=== PATIENT | female | born 1970 | race Caucasian/White ===

== ENCOUNTER → 2017-03-15 | Outpatient (CLI) | payer BC ==
--- NOTE | 2017-03-15 08:04 | USB ---
Reason for exam: follow-up at short interval from prior study. History: Patient is nulliparous. Family history of breast cancer in maternal aunt at age 70. Benign US biopsy breast VAD LT of the left breast, September 14, 2016. Benign US biopsy breast add'l VAD LT of the left breast, September 14, 2016. Cancelled Left US Needle Biopsy of the left breast, November 19, 2007. Took hormonal contraceptives for 15 years. Physical Findings: Nurse Summary: Left breast palpable at 1 o'clock, 1 x 1.5cm movable, non-tender palpable lump (nurse ts). US Breast LT Left breast ultrasound includes all four quadrants, the retroareolar region and axilla. Finding demonstrate a 1.6 x 0.8 x 1.2cm oval, solid, hypoechoic lesion at 1 o'clock and a 1.0 x 0.6 x 0.9cm oval, solid, hypoechoic lesion at 3 o'clock that have been previously biopsied. These results were verbally communicated with the patient and result sheet given to the patient on 03/15/17. ASSESSMENT: Benign, BI-RAD 2 RECOMMENDATION: Routine screening mammogram of both breasts in 2 months. Back on schedule May 2017.
== END | disposition home or self-care (01) ==
LOC: RADUSWWP 06:50
PROVIDERS: ATTEND Surgery
DX: R92.8 Other abnormal and inconclusive findings on diagnostic imaging of breast (principal)

== ENCOUNTER → 2017-05-30 | Outpatient (CLI) | payer BC ==
--- NOTE | 2017-06-01 09:42 | MM ---
Reason for exam: screening (asymptomatic). Last mammogram was performed 1 year ago. History: Patient is nulliparous. Family history of breast cancer in maternal aunt at age 70. Benign US biopsy breast VAD LT of the left breast, September 14, 2016. Benign US biopsy breast add'l VAD LT of the left breast, September 14, 2016. Cancelled Left US Needle Biopsy of the left breast, November 19, 2007. Took hormonal contraceptives for 15 years. Physical Findings: A clinical breast exam by your physician is recommended on an annual basis and results should be correlated with mammographic findings. MG 3D Screening Mammo W/Cad Bilateral CC and MLO view(s) were taken. Prior study comparison: January 28, 2014, bilateral digital screening mammo w/CAD. November 06, 2012, bilateral digital screening mammo w/CAD. The breast tissue is heterogeneously dense. This may lower the sensitivity of mammography. No significant changes when compared with prior studies. ASSESSMENT: Benign, BI-RAD 2 RECOMMENDATION: Routine screening mammogram of both breasts in 1 year.
== END | disposition home or self-care (01) ==
LOC: RADMAMWWP 06:53
PROVIDERS: ATTEND Surgery
DX: Z12.31 Encounter for screening mammogram for malignant neoplasm of breast (principal)
CPT/HCPCS: 77063; G0202

== ENCOUNTER → 2017-05-31 | Outpatient (CLI) | payer BC ==
--- NOTE | 2017-06-01 09:13 | WWHP ---
CHIEF COMPLAINT: The patient is here for her routine gynecologic exam and mammogram. HPI: This is a 46-year-old G0 with a LMP of 05/19/17. The patient states she felt a very small lump in the left labia recently. It was smaller than pea size. She squeezed it a small amount of fluid came out. She is otherwise without complaints. Her is status post vasectomy. Menses are regular. PAST MEDICAL HISTORY: Hypothyroidism and chronic hypertension. MEDICATIONS: Levoxyl 112 mcg daily, triamterene /hydrochlorothiazide capsules 37.5/25 daily, aspirin 81 mg daily, atenolol 25 mg daily, Slow-Mag 1 daily, vitamin D chewable 2 daily. ALLERGIES: PENICILLIN. PAST SURGICAL HISTORY: Tonsillectomy with adenoidectomy at age 24, left breast biopsy in 09/23. Colonoscopy in 11/25. PAST CASTING FINISHER HISTORY: She has no history of STDs. SOCIAL HISTORY: She denies tobacco and drug use and has about four alcoholic drinks per month. She has been since 2011 and this is her second marriage. 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 FAMILY HISTORY: Father and maternal grandfather have diabetes. REVIEW OF SYSTEMS: She has gained about 8 pounds over the last year. She denies respiratory, cardiac, or GI problems. PHYSICAL EXAM: Blood pressure 129/87, height 5 feet 7 inches, weight 205 pounds. Temperature 98.2, pulse 67. This is a well developed, well nourished white female who is alert and oriented x3 in no acute distress. HEENT is within normal limits. Neck is supple without mass or thyromegaly. Chest and lungs clear to auscultation. Heart: Regular rate and rhythm. Breasts are without mass or discharge. Axillary exam is negative for adenopathy. Back negative for CVA tenderness. Abdomen is soft, nontender without palpable masses. Pelvic exam: Normal external genitalia. No lesions are noted. Cervix and vagina appear normal. There is no evidence of prolapse. The uterus is mid-position, nongravid size and nontender. There are no palpable adnexal masses or tenderness. Rectal exam is negative for mass or tenderness and is negative for occult blood. Extremities are nontender. IMPRESSION: 1. A 46-year-old gynecologically healthy female with normal gynecologic exam. 2. The patient expressed a small amount of fluid from small lump that she noticed in the left labia and there are no significant physical findings at this time. This probably was a small dermal inclusion cyst. PLAN: 1. PAP smear was performed per the patients request despite my recommendation to defer the PAP smear since she had a normal one last year. She feels strongly that she would like to have this done yearly for personal reasons. The PAP smear was performed. 2. Self breast examination was discussed. 3. Mammogram was done yesterday with results pending. 4. Osteoporosis prevention was discussed. 5. She will return in one year. SIMIN
== END | disposition home or self-care (01) ==
LOC: WWCWWP 07:43
PROVIDERS: ATTEND Obstetrics & Gynecology
DX: Z01.419 Encounter for gynecological examination (general) (routine) without abnormal findings (principal)

== ENCOUNTER → 2018-07-04 | Outpatient (CLI) | payer BC ==
--- NOTE | 2018-07-05 10:04 | MM ---
Reason for exam: screening (asymptomatic). Last mammogram was performed 1 year and 1 month ago. History: Patient is nulliparous. Family history of breast cancer in maternal aunt at age 70. Benign US biopsy breast VAD LT of the left breast, September 14, 2016. Benign US biopsy breast add'l VAD LT of the left breast, September 14, 2016. Cancelled Left US Needle Biopsy of the left breast, November 19, 2007. Took hormonal contraceptives for 15 years. Physical Findings: A clinical breast exam by your physician is recommended on an annual basis and results should be correlated with mammographic findings. MG 3D Screening Mammo W/Cad Bilateral CC and MLO view(s) were taken. Prior study comparison: May 30, 2017, bilateral MG 3d screening mammo w/cad. May 17, 2016, bilateral MG screening mammo w CAD. The breast tissue is heterogeneously dense. This may lower the sensitivity of mammography. Previous mammotome biopsy in the left breast x 2. There is chronic nodularity in the left breast. No significant changes when compared with prior studies. ASSESSMENT: Benign, BI-RAD 2 RECOMMENDATION: Routine screening mammogram of both breasts in 1 year.
== END | disposition home or self-care (01) ==
LOC: RADMAMWWP 06:58
PROVIDERS: ATTEND Internal Medicine
DX: Z12.31 Encounter for screening mammogram for malignant neoplasm of breast (principal)
CPT/HCPCS: 77063; 77067

== ENCOUNTER → 2018-08-04 | Outpatient (CLI) | payer BC ==
[2018-08-04 18:20] LABS: Hepatitis C IgG Antibody Non-Reactive (Non-Reactive)
[2018-08-06 10:46] LABS: HIV 1 AB Non-Reactive (Non-Reactive); HIV AB P24 Non-Reactive (Non-Reactive); HIV P24 AG Non-Reactive (Non-Reactive)
--- NOTE | 2018-08-07 14:03 | P.PN ---
Progress Note - Text Progress Note Date: 08/07/18 OUTPATIENT FOLLOW-UP NOTE TEST(S)/RESULTS: blood test results from 08/04/2018 include negative HIV, negative RPR, negative hepatitis B surface antigen, and negative hepatitis C antibody. METHOD OF NOTIFICATION: the patient was notified by phone. PATIENT COMMENTS: the patient has an appointment with Dr. Peacock for her abnormal Pap smear tomorrow. DIAGNOSIS: negative blood test STD screening. Low-grade KEN Pap smear with positive high-risk HPV. DISCUSSION: [] PLAN: await colposcopy to be done by Dr. Peacock on 08/08/2018.
== END ==
LOC: LABWHC1 10:55
PROVIDERS: ATTEND Obstetrics & Gynecology
DX: Z11.3 Encounter for screening for infections with a predominantly sexual mode of transmission (principal)
CPT/HCPCS: 36415; 86780; 86803; 87340; 87390

== ENCOUNTER → 2018-09-08 | Outpatient (CLI) | payer BC ==
[2018-09-08 16:51] LABS: LDL Cholesterol,Calculated 150.6 mg/dL (0.0-131.0); VLDL Calculation 14.4 mg/dL (5.00-40.00)
== END | disposition home or self-care (01) ==
LOC: LABWHC1 11:32
PROVIDERS: ATTEND Internal Medicine Interventional Cardiology
DX: E78.2 Mixed hyperlipidemia (principal)
CPT/HCPCS: 36415; 80061; 84450; 84460

== ENCOUNTER → 2019-01-25 | Outpatient (CLI) | payer BC ==
[2019-01-25 15:39] LABS: HCT 39.1 % (34.0-46.0); HGB 13.8 gm/dL (11.4-16.0); MCH 31.2 pg (25.0-35.0); MCHC 35.3 g/dL (31.0-37.0); MCV 88.4 fL (80.0-100.0); Mean Platelet Volume 6.8; Platelet Count 202 k/uL (150-450); RBC 4.42 m/uL (3.80-5.40); RDW 13.1 % (11.5-15.5); WBC 5.5 k/uL (3.8-10.6)
[2019-01-25 23:15] LABS: T4, Free (Free Thyroxine) 1.5 ng/dL (0.80-1.80)
[2019-01-25 23:17] LABS: Albumin 4.6 g/dL (3.80-4.90); Albumin/Globulin Ratio 2.56 (1.60-3.17); Anion Gap 14.2 mmol/L (4.00-12.00); Calcium 9.6 mg/dL (8.7-10.3); Carbon Dioxide 25.8 mmol/L (21.6-31.8); Globulin 1.8 g/dL (1.6-3.3); LDL Cholesterol,Calculated 185.6 mg/dL (0.0-131.0); Potassium 4.1 mmol/L (3.5-5.5); Total Bilirubin 1.4 mg/dL (0.2-1.2); Total Protein 6.4 g/dL (6.2-8.2); VLDL Calculation 13.4 mg/dL (5.00-40.00)
== END ==
LOC: LABWHC1 13:35
PROVIDERS: ATTEND Internal Medicine
DX: Z00.00 Encounter for general adult medical examination without abnormal findings (principal); I11.9 Hypertensive heart disease without heart failure; E03.9 Hypothyroidism, unspecified; E78.2 Mixed hyperlipidemia; K21.0 Gastro-esophageal reflux disease with esophagitis; M89.9 Disorder of bone, unspecified
CPT/HCPCS: 36415; 80053; 80061; 82306; 84439; 84443; 85027

== ENCOUNTER → 2019-03-23 | Outpatient (CLI) | payer BC ==
[2019-03-23 16:06] LABS: ALT 13 U/L (8-44); AST 19 U/L (13-35); African American GFR (CKD) 88.2 (60.0-200.0); Albumin/Globulin Ratio 1.83 (1.60-3.17); Alkaline Phosphatase 44 U/L (41-126); BUN/Creat Ratio 17.78 Ratio (12.00-20.00); Calcium 9.8 mg/dL (8.7-10.3); Carbon Dioxide 30.5 mmol/L (21.6-31.8); Chloride 102 mmol/L (96-109); Cholesterol 213 mg/dL (0-200); Globulin 2.4 g/dL (1.6-3.3); Glucose 97 mg/dL (70-110); Potassium 4.5 mmol/L (3.5-5.5); Sodium 139 mmol/L (135-145); Total Bilirubin 0.5 mg/dL (0.3-1.2); Total Protein 6.8 g/dL (6.2-8.2); Triglycerides <50.0 mg/dL (0.0-149.0); VLDL Calculation 9.98 mg/dL (5.00-40.00)
== END | disposition home or self-care (01) ==
LOC: LABWHC1 10:40
PROVIDERS: ATTEND Internal Medicine Endocrinology, Diabetes & Metabolism
DX: E78.5 Hyperlipidemia, unspecified (principal); E55.9 Vitamin D deficiency, unspecified; E06.3 Autoimmune thyroiditis
CPT/HCPCS: 36415; 80053; 80061; 82306; 84439; 84443

== ENCOUNTER → 2019-08-09 | Outpatient (CLI) | payer BC ==
--- NOTE | 2019-08-12 09:04 | MM ---
Reason for exam: screening (asymptomatic). Last mammogram was performed 1 year and 1 month ago. History: Patient is nulliparous. Family history of breast cancer in maternal aunt at age 70. Benign US biopsy breast VAD LT of the left breast, September 14, 2016. Benign US biopsy breast add'l VAD LT of the left breast, September 14, 2016. Cancelled Left US Needle Biopsy of the left breast, November 19, 2007. Took hormonal contraceptives for 15 years. Physical Findings: A clinical breast exam by your physician is recommended on an annual basis and results should be correlated with mammographic findings. MG 3D Screening Mammo W/Cad Bilateral CC and MLO view(s) were taken. Prior study comparison: July 04, 2018, bilateral MG 3d screening mammo w/cad. May 30, 2017, bilateral MG 3d screening mammo w/cad. The breast tissue is extremely dense which could obscure a lesion on mammography. No suspicious abnormality. Left biopsy markers noted, ribbon marker associated with an oval mass. No significant changes when compared with prior studies. ASSESSMENT: Benign, BI-RAD 2 RECOMMENDATION: Routine screening mammogram of both breasts in 1 year.
== END | disposition home or self-care (01) ==
LOC: RADMAMWWP 06:45
PROVIDERS: ATTEND Obstetrics & Gynecology
DX: Z12.31 Encounter for screening mammogram for malignant neoplasm of breast (principal)
CPT/HCPCS: 77063; 77067

== ENCOUNTER → 2020-10-01 | Outpatient (CLI) | payer BC ==
--- NOTE | 2020-10-06 10:08 | MM ---
Reason for exam: screening (asymptomatic). Last mammogram was performed 1 year and 2 months ago. History: Patient is nulliparous. Family history of breast cancer in maternal aunt at age 70. Benign US biopsy breast VAD LT of the left breast, September 14, 2016. Benign US biopsy breast add'l VAD LT of the left breast, September 14, 2016. Cancelled Left US Needle Biopsy of the left breast, November 19, 2007. Took hormonal contraceptives for 15 years. Physical Findings: A clinical breast exam by your physician is recommended on an annual basis and results should be correlated with mammographic findings. MG 3D Screening Mammo W/Cad Bilateral CC and MLO view(s) were taken. Prior study comparison: August 09, 2019, bilateral MG 3d screening mammo w/cad. May 17, 2016, bilateral MG screening mammo w CAD. March 26, 2015, bilateral MG screening mammo w CAD. The breast tissue is extremely dense which could obscure a lesion on mammography. Previous mammotome biopsy in the left breast x 2. There is chronic nodularity in the left breast. Increased 1.3cm nodularity 11-12 o'clock right breast. Underlying 9mm nodularity lateral central left CC view at a middle depth. ASSESSMENT: Incomplete: need additional imaging evaluation, BI-RAD 0 RECOMMENDATION: Special view mammogram and ultrasound of both breasts. [facility] will attempt to contact patient to return for supplemental views and ultrasound.
== END | disposition home or self-care (01) ==
LOC: RADMAMWWP 07:09
PROVIDERS: ATTEND Obstetrics & Gynecology
DX: Z12.31 Encounter for screening mammogram for malignant neoplasm of breast (principal)
CPT/HCPCS: 77063; 77067

== ENCOUNTER → 2020-10-15 | Outpatient (CLI) | payer BC ==
--- NOTE | 2020-10-16 10:53 | MM ---
Reason for exam: additional evaluation requested from abnormal screening. Last mammogram was performed less than 1 month ago. History: Patient is nulliparous. Family history of breast cancer in maternal aunt at age 70. Benign US biopsy breast VAD LT of the left breast, September 14, 2016. Benign US biopsy breast add'l VAD LT of the left breast, September 14, 2016. Cancelled Left US Needle Biopsy of the left breast, November 19, 2007. Took hormonal contraceptives for 15 years. Physical Findings: Nurse Summary: 0.7cm nodule in the right breast at 11 o'clock and a 0.5cm nodule in the left breast at 1-2 o'clock (nurse TM). MG 3D Work Up W/Cad NACNY Bilateral CC, MLO, and LM view(s) were taken. Prior study comparison: October 01, 2020, bilateral MG 3d screening mammo w/cad. August 09, 2019, bilateral MG 3d screening mammo w/cad. The breast tissue is extremely dense which could obscure a lesion on mammography. There is no discrete abnormality including area of concern. The rounded densities not identified on ML. These results were verbally communicated with the patient and result sheet given to the patient on 10/15/20. ASSESSMENT: Incomplete: need additional imaging evaluation, BI-RAD 0 RECOMMENDATION: Ultrasound of both breasts.
--- NOTE | 2020-10-16 10:56 | USB ---
Reason for exam: additional evaluation requested from abnormal screening. History: Patient is nulliparous. Family history of breast cancer in maternal aunt at age 70. Benign US biopsy breast VAD LT of the left breast, September 14, 2016. Benign US biopsy breast add'l VAD LT of the left breast, September 14, 2016. Cancelled Left US Needle Biopsy of the left breast, November 19, 2007. Took hormonal contraceptives for 15 years. US Breast Workup Limited NANCY Right limited breast ultrasound including focal area of concern, retroareolar and axilla demonstrates a 11 x 5 x 11mm oval, cystic lesion at 10 o'clock and a 6mm oval lymph node at the axilla tail. Left limited breast ultrasound including focal area of concern, retroareolar and axilla demonstrates a 5 x 3 x 5mm oval, cystic lesion at 12 o'clock, a 8 x 6 x 9mm oval, cystic lesion at 1 o'clock, a 18 x 7 x 13mm oval, hypoechoic lesion at 2 o'clock, previously biopsied and a 10 x 9mm oval, hypoechoic lesion at 3 o'clock, previously biopsied. These results were verbally communicated with the patient and result sheet given to the patient on 10/15/20. ASSESSMENT: Benign, BI-RAD 2 RECOMMENDATION: Return to routine screening mammogram schedule for both breasts.
== END | disposition home or self-care (01) ==
LOC: RADMAMWWP 14:08
PROVIDERS: ATTEND Obstetrics & Gynecology
DX: R92.8 Other abnormal and inconclusive findings on diagnostic imaging of breast (principal)
CPT/HCPCS: 77062; 77066

== ENCOUNTER → 2021-10-06 | Outpatient (CLI) | payer BC ==
--- NOTE | 2021-10-11 10:36 | MM ---
Reason for exam: screening (asymptomatic). Last mammogram was performed 1 year ago. History: Patient is nulliparous. Family history of breast cancer in maternal aunt at age 70. Benign US biopsy breast VAD LT of the left breast, September 14, 2016. Benign US biopsy breast add'l VAD LT of the left breast, September 14, 2016. Cancelled Left US Needle Biopsy of the left breast, November 19, 2007. Took hormonal contraceptives for 15 years. Physical Findings: A clinical breast exam by your physician is recommended on an annual basis and results should be correlated with mammographic findings. MG 3D Screening Mammo W/Cad Bilateral CC and MLO view(s) were taken. Prior study comparison: October 15, 2020, bilateral MG 3d work up w/cad NANCY. October 01, 2020, bilateral MG 3d screening mammo w/cad. May 30, 2017, bilateral MG 3d screening mammo w/cad. The breast tissue is heterogeneously dense. This may lower the sensitivity of mammography. Previous mammotome biopsy in the left breast x 2. There is chronic nodularity in the left breast. No significant changes when compared with prior studies. ASSESSMENT: Benign, BI-RAD 2 RECOMMENDATION: Routine screening mammogram of both breasts in 1 year. Patient should continue monthly self breast exams. A negative report should not preclude additional follow up of suspicious palpable abnormalities.
== END | disposition home or self-care (01) ==
LOC: RADMAMWWP 09:31
PROVIDERS: ATTEND Family Medicine
DX: Z12.31 Encounter for screening mammogram for malignant neoplasm of breast (principal); Z80.3 Family history of malignant neoplasm of breast
CPT/HCPCS: 77063; 77067

== ENCOUNTER → 2022-10-24 | Outpatient (CLI) | payer BC ==
--- NOTE | 2022-10-25 20:26 | MM ---
Reason for Exam: Screening (asymptomatic). Last mammogram was performed 1 year(s) and 1 month(s) ago. Patient History: Menarche at age 15. Patient has no children. Hormonal Contraceptives for 15 years until age 36. 09/14/2016, Benign Core Biopsy on the left side. 09/14/2016, Benign Core Biopsy on the left side. 11/19/2007, Cancelled Left US Needle Biopsy on the left side. Maternal aunt had breast cancer, age 70. Last menstrual period: 10/08/2022 Risk Values: Laura 5 year model risk: 1.5%. NCI Lifetime model risk: 13.3%. Prior Study Comparison: 10/01/2020 Bilateral Screening Mammogram, [facility]. 10/15/2020 Bilateral Diagnostic Mammogram, [facility]. 10/06/2021 Bilateral Screening Mammogram, [facility]. Tissue Density: The breast tissue is heterogeneously dense. This may lower the sensitivity of mammography. Findings: Analyzed By CAD. Chronic nodularity lateral aspect of the left breast. 2 microclips are present here from prior biopsies. There is a nodular area of asymmetric density posterior central right and low view not clearly identified on the cc view but seems to persist on 3-D images. Further evaluation recommended. Otherwise, no significant change. Overall Assessment: Incomplete: need additional imaging evaluation, BI-RAD 0 Management: Special View Mammogram of the right breast. Diagnostic Breast Ultrasound of the right breast. Including spot 3-D MLO and 3-D lateral views. Whole right breast ultrasound given the patient's dense breast tissue. [facility] will attempt to contact patient to return for supplemental views and ultrasound if indicated. Electronically signed and approved by: Tangela Dominguez M.D. Radiologist
== END | disposition home or self-care (01) ==
LOC: RADMAMWWP 13:13
PROVIDERS: ATTEND Family Medicine
DX: Z12.31 Encounter for screening mammogram for malignant neoplasm of breast (principal); Z80.3 Family history of malignant neoplasm of breast
CPT/HCPCS: 77063; 77067

== ENCOUNTER → 2022-10-27 | Outpatient (CLI) | payer BC ==
--- NOTE | 2022-10-27 08:26 | MM ---
Reason for Exam: Additional evaluation requested from abnormal screening. Last screening mammogram was performed less than 1 month ago. Patient History: Menarche at age 15. Patient has no children. Hormonal Contraceptives for 15 years until age 36. 09/14/2016, Benign Core Biopsy on the left side. 09/14/2016, Benign Core Biopsy on the left side. 11/19/2007, Cancelled Left US Needle Biopsy on the left side. Maternal aunt had breast cancer, age 70. Risk Values: Laura 5 year model risk: 1.5%. NCI Lifetime model risk: 13.3%. Tissue Density: Right: The breast tissue is heterogeneously dense. This may lower the sensitivity of mammography. Findings: Analyzed By CAD. Very vague rounded density may be in the lateral mid right breast. This is smaller and less distinct than on the screening mammogram earlier 10/25/2022. Ultrasound is recommended for additional workup. Overall Assessment: Incomplete: need additional imaging evaluation, BI-RAD 0 Management: Diagnostic Breast Ultrasound of the right breast. A clinical breast exam by your physician is recommended on an annual basis and results should be correlated with mammographic findings. This exam should not preclude additional follow-up of suspicious palpable abnormalities. Results were given to the patient verbally at the time of exam. Electronically signed and approved by: Ta Hammonds D.O. Radiologis
--- NOTE | 2022-10-27 08:27 | USB ---
Patient History: Menarche at age 15. Patient has no children. Hormonal Contraceptives for 15 years until age 36. 09/14/2016, Benign Core Biopsy on the left side. 09/14/2016, Benign Core Biopsy on the left side. 11/19/2007, Cancelled Left US Needle Biopsy on the left side. Maternal aunt had breast cancer, age 70. Risk Values: Laura 5 year model risk: 1.5%. NCI Lifetime model risk: 13.3%. Technique: Method: Targeted. Prior Study Comparison: 10/15/2020 Bilateral Diagnostic Mammogram, [facility]. 10/06/2021 Bilateral Screening Mammogram, [facility]. 10/24/2022 Bilateral MG 3D screening mammo w/cad, [facility]. Findings: The upper section of the breast of the right breast, the axilla of the right breast and the retroareolar of the right breast were scanned. No solid or cystic masses are identified. Attention is paid to the upper portion of the breast to correlate with the mammographic finding. No discrete solid or cystic areas evident. Mammogram findings may be summation density. Overall Assessment: Negative, BI-RAD 1 Management: Diagnostic Mammogram of the right breast in 6 months. A clinical breast exam by your physician is recommended on an annual basis and results should be correlated with mammographic findings. This exam should not preclude additional follow-up of suspicious palpable abnormalities. Results were given to the patient verbally at the time of exam. Electronically signed and approved by: Ta Hammonds D.O. Radiologis
== END | disposition home or self-care (01) ==
LOC: RADMAMWWP 07:23
PROVIDERS: ATTEND Family Medicine
DX: R92.8 Other abnormal and inconclusive findings on diagnostic imaging of breast (principal)
CPT/HCPCS: 77061; 77065

== ENCOUNTER → 2023-01-30 | Outpatient (CLI) | payer BC ==
--- NOTE | 2023-02-06 07:52 | CE ---
Holter Monitor STUDY PERFORMED: 24-hour monitor. INDICATIONS: Cardiac arrhythmia. FINDINGS: The patient was monitored for 24 hours. The baseline rhythm appeared to be sinus mechanism. No evidence of any atrial fibrillation or atrial flutter noted. No evidence of any significant sinus pause or sinus arrest seen. The patient did have multiple episodes of atrial tachycardia/SVT noted. The longest episode of SVT was of 4 beats only. No significant sinus pause or sinus arrest. CONCLUSION: 1. Sinus rhythm as a baseline mechanism. 2. The patient did have multiple episodes of atrial tachycardia with the longest of 4 beats only. MMODL / IJN: [id number] / MTDD
== END | disposition home or self-care (01) ==
LOC: RADECHMAIN 07:49
PROVIDERS: ATTEND Family Medicine
DX: I47.1 Supraventricular tachycardia (principal); R00.2 Palpitations
CPT/HCPCS: 93225; 93226

== ENCOUNTER → 2023-11-06 | Outpatient (CLI) | payer BC ==
--- NOTE | 2023-11-06 22:14 | MM ---
Reason for Exam: Screening (asymptomatic). Last screening mammogram was performed 12 month(s) ago. Patient History: Menarche at age 15. Patient has no children. Postmenopausal. Hormonal Contraceptives for 15 years until age 36. 09/14/2016, Benign Core Biopsy on the left side. 09/14/2016, Benign Core Biopsy on the left side. 11/19/2007, Cancelled Left US Needle Biopsy on the left side. Maternal aunt had breast cancer, age 70. Risk Values: Laura 5 year model risk: 1.5%. NCI Lifetime model risk: 13.1%. Prior Study Comparison: 07/04/2018 Bilateral Screening Mammogram, [facility]. 08/09/2019 Bilateral Screening Mammogram, [facility]. 10/01/2020 Bilateral Screening Mammogram, [facility]. 10/15/2020 Bilateral Diagnostic Mammogram, [facility]. 10/06/2021 Bilateral Screening Mammogram, [facility]. 10/24/2022 Bilateral MG 3D screening mammo w/cad, [facility]. 10/27/2022 Right MG 3D work up w/cad RT, [facility]. 05/01/2023 Right MG 3D diag mammo w/cad RT, [facility]. Tissue Density: The breast tissue is heterogeneously dense. This may lower the sensitivity of mammography. Findings: Analyzed By CAD. The pattern is symmetrical. Core markers are within the left breast. Couple of benign-appearing punctate calcifications are within the left breast. No significant interval changes are evident. No suspicious groups of microcalcifications, spiculated or lobular masses, architectural distortion or other secondary signs of malignancy are mammographically apparent. Overall Assessment: Benign, BI-RAD 2 Management: Screening Mammogram of both breasts in 1 year. A negative mammogram report should not preclude additional follow up of suspicious palpable abnormalities. Patient should continue monthly self breast exam. A clinical breast exam by your physician is recommended on an annual basis and results should be correlated with mammographic findings. Electronically signed and approved by: Ta Hammonds D.O. Radiologis
== END | disposition home or self-care (01) ==
LOC: RADMAMWWP 06:55
PROVIDERS: ATTEND Family Medicine
DX: Z12.31 Encounter for screening mammogram for malignant neoplasm of breast (principal); Z80.3 Family history of malignant neoplasm of breast; Z78.0 Asymptomatic menopausal state
CPT/HCPCS: 77063; 77067